=== PATIENT | male | born 1990 | race Caucasian/White ===

== ENCOUNTER 2020-02-29 14:51 | Emergency (ER) | payer SELFPAY ==
[2020-02-29] MEDS ORDERED: DOXYCYCLINE 100 MG CAP PO ONE (15:36)
[2020-02-29] MEDS ORDERED: TETANUS & DIPHTHERIA TOX,ADULT 0.5 ML VIAL ONE (15:36)
--- NOTE | 2020-02-29 15:53 | EDPHYS ---
Physician Documentation [facility] Name: Souleymane Fernandez Age: 29 yrs Sex: Male : 1990 Arrival Date: 02/29/2020 Time: 14:55 Bed 24 Private MD: ED Physician Cruz Smith HPI: 02/28 15:45 This 29 yrs old Male presents to ER via Ambulatory with complaints of kb Laceration To Leg. 15:48 The patient has a laceration related to: fell into oyster bed occurred outdoors, and kb there are no complicating factors. The injury was accidental. The laceration(s) is(are) located on the medial aspect of right calf. Onset: The symptoms/episode began/occurred just prior to arrival. Associated signs and symptoms: The patient has no apparent associated signs or symptoms. The patient has not experienced similar symptoms in the past. The patient has not recently seen a physician. 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 States he was concerned about infection so he came to get it looked at. . Historical: - Allergies: 15:14 No Known Allergies; ca1 - Home Meds: 15:14 None [Active]; ca1 - PMHx: 15:14 None; ca1 - PSHx: 15:14 None; ca1 - Immunization history:: Adult Immunizations up to date, Last tetanus immunization: unknown. - Social history:: Smoking status: Patient reports the use of cigarette tobacco products, denies chronic smoking, but will smoke occasionally. ROS: 15:43 Constitutional: Negative for fever, chills, and weight loss, Cardiovascular: Negative kb for chest pain, palpitations, and edema, Respiratory: Negative for shortness of breath, cough, wheezing, and pleuritic chest pain, Abdomen/GI: Negative for abdominal pain, nausea, vomiting, diarrhea, and constipation, Back: Negative for injury and pain, MS/Extremity: Negative for injury and deformity, Neuro: Negative for headache, weakness, numbness, tingling, and seizure. 15:43 Skin: Positive for laceration(s), of the medial aspect of right calf. Exam: 15:45 Constitutional: This is a well developed, well nourished patient who is awake, alert, kb and in no acute distress. Head/Face: Normocephalic, atraumatic. Chest/axilla: Normal chest wall appearance and motion. Nontender with no deformity. No lesions are appreciated. Cardiovascular: Regular rate and rhythm with a normal S1 and S2. No gallops, murmurs, or rubs. Normal PMI, no JVD. No pulse deficits. Respiratory: Lungs have equal breath sounds bilaterally, clear to auscultation and percussion. No rales, rhonchi or wheezes noted. No increased work of breathing, no retractions or nasal flaring. Abdomen/GI: Soft, non-tender, with normal bowel sounds. No distension or tympany. No guarding or rebound. No evidence of tenderness throughout. Back: No spinal tenderness. No costovertebral tenderness. Full range of motion. MS/ Extremity: Pulses equal, no cyanosis. Neurovascular intact. Full, normal range of motion. Neuro: Awake and alert, GCS 15, oriented to person, place, time, and situation. Cranial nerves II-XII grossly intact. Motor strength 5/5 in all extremities. Sensory grossly intact. Cerebellar exam normal. Normal gait. 15:45 Skin: injury, laceration(s), multiple lacerations/abrasions to medial aspect of right lower leg. , that can be described as linear, without bleeding. Vital Signs: 15:10 BP 118 / 73; Pulse 63; Resp 16 S; Temp 97.4(TE); Pulse Ox 99% on R/A; Weight 99.79 kg ca1 (R); Height 5 ft. 11 in. (180.34 cm) (R); Pain 7/10; 15:10 Body Mass Index 30.68 (99.79 kg, 180.34 cm) ca1 MDM: 15:19 Patient medically screened. kb 15:48 Data reviewed: vital signs, nurses notes. Data interpreted: Pulse oximetry: on room air kb is 99 %. Interpretation: normal. Counseling: I had a detailed discussion with the patient and/or guardian regarding: the historical points, exam findings, and any diagnostic results supporting the discharge/admit diagnosis, the need for outpatient follow up, a family practitioner, to return to the emergency department if symptoms worsen or persist or if there are any questions or concerns that arise at home. 15:49 ED course: One laceration is not well approximated. Discussed risks and benefits of kb suturing the laceration. Pt would rather leave it open to heal so he can clean it.. Administered Medications: 15:33 Drug: Tetanus-Diphtheria Toxoid Adult 0.5 ml {Specialty Manufacturing Supervisor: REPP. Exp: iw 11/29/2021. Lot #: [id number]. } Route: IM; Site: right deltoid; 15:45 Follow up: Response: No adverse reaction iw 15:33 Drug: Doxycycline 100 mg Route: PO; iw 15:45 Follow up: Response: No adverse reaction iw Disposition: 03/01 07:10 Co-signature as Attending Physician, Cruz Smith MD. rn Disposition: 02/29/20 15:52 Discharged to Home. Impression: Laceration without foreign body of lower leg - multiple, right, Abrasion of lower leg. - Condition is Stable. - Discharge Instructions: Nonsutured Laceration Care, Abrasion, [id number]. - Prescriptions for Doxycycline Hyclate 100 mg Oral Tablet - take 1 tablet by ORAL route every 12 hours for 7 days; 14 tablet. - Medication Reconciliation Form, Thank You Letter, Antibiotic Education, Prescription Opioid Use form. - Follow up: Private Physician; When: 2 - 3 days; Reason: Recheck today's complaints, Continuance of care, Re-evaluation by your physician. Follow up: Emergency Department; When: As needed; Reason: Worsening of condition. Signatures: Jennifer Henry, DANNY-C FINANCIAL BUSINESS ANALYST-Jacqui Ahmadi, RN Cruz Pratt MD MD rn Acob, ELIER Juan RN ca1 Corrections: (The following items were deleted from the chart) 02/28 15:47 15:43 Skin: Positive for laceration(s), of the lateral aspect of left calf, kb 15:47 15:45 Skin: injury, laceration(s), multiple lacerations/abrasions to lateral aspect of kb left lower leg. , that can be described as linear, without bleeding, kb 16:08 15:52 02/29/2020 15:52 Discharged to Home. Impression: Laceration without foreign body iw of lower leg - multiple, right; Abrasion of lower leg. Condition is Stable. Forms are Medication Reconciliation Form, Thank You Letter, Antibiotic Education, Prescription Opioid Use. Follow up: Private Physician; When: 2 - 3 days; Reason: Recheck today's complaints, Continuance of care, Re-evaluation by your physician. Follow up: Emergency Department; When: As needed; Reason: Worsening of condition. kb
--- NOTE | 2020-02-29 15:53 | ER ---
Nurse's Notes [facility] Name: Souleymane Fernandez Age: 29 yrs Sex: Male : 1990 Arrival Date: 02/29/2020 Time: 14:55 Bed 24 Private MD: Diagnosis: Laceration without foreign body of lower leg-multiple, right;Abrasion of lower leg Presentation: 02/28 15:10 Chief complaint: Patient states: Abrasions on R inner leg caused by an oyster bed. ca1 Coronavirus screen: Proceed with normal triage. Patient denies a cough. Patient denies shortness of breath or difficulty breathing. Patient denies measured and/or subjective temperature greater than 100.4F prior to today's visit. Patient denies travel on a cruise ship or to a country the [facility] [place] currently [place] as an affected area. Patient denies contact with known and/or suspected case of COVID-19. Ebola Screen: Patient negative for fever greater than or equal to 101.5 degrees Fahrenheit, and additional compatible Ebola Virus Disease symptoms Patient denies exposure to infectious person. Patient denies travel to an Ebola-affected area in the 21 days before illness onset. No symptoms or risks identified at this time. Initial Sepsis Screen: Does the patient meet any 2 criteria? No. Patient's initial sepsis screen is negative. Does the patient have a suspected source of infection? No. Patient's initial sepsis screen is negative. Risk Assessment: Do you want to hurt yourself or someone else? Patient reports no desire to harm self or others. Onset of symptoms was February 29, 2020. 15:10 Method Of Arrival: Ambulatory ca1 15:10 Acuity: ALEJANDRO 4 ca1 15:30 Complicating Factors: There are no complicating factors for this patient. iw Historical: - Allergies: 15:14 No Known Allergies; ca1 - Home Meds: 15:14 None [Active]; ca1 - PMHx: 15:14 None; ca1 - PSHx: 15:14 None; ca1 - Immunization history:: Adult Immunizations up to date, Last tetanus immunization: unknown. - Social history:: Smoking status: Patient reports the use of cigarette tobacco products, denies chronic smoking, but will smoke occasionally. Screenin:56 Abuse screen: Denies threats or abuse. Denies injuries from another. Nutritional iw screening: No deficits noted. Tuberculosis screening: No symptoms or risk factors identified. Fall Risk None identified. Assessment: 15:40 General: Appears in no apparent distress. comfortable, Behavior is calm, cooperative. iw Pain: Complains of pain in medial aspect of right calf. Neuro: Level of Consciousness is awake, alert, obeys commands, Oriented to person, place, time, situation, Moves all extremities. Full function. Cardiovascular: Patient's skin is warm and dry. Respiratory: Respiratory effort is even, unlabored, Respiratory pattern is regular, symmetrical. Derm: Skin is healthy with good turgor. Musculoskeletal: Range of motion: intact in all extremities. Injury Description: Laceration sustained to medial aspect of right calf is 0.5 to 2.5 cm long. Injury Description: Abrasion sustained to right calf and medial aspect of right calf. Vital Signs: 15:10 BP 118 / 73; Pulse 63; Resp 16 S; Temp 97.4(TE); Pulse Ox 99% on R/A; Weight 99.79 kg ca1 (R); Height 5 ft. 11 in. (180.34 cm) (R); Pain 7/10; 15:10 Body Mass Index 30.68 (99.79 kg, 180.34 cm) ca1 ED Course: 14:55 Patient arrived in ED. as 15:13 Triage completed. ca1 15:14 Arm band placed on right wrist. ca1 15:19 Jennifer Henry FNP-C is PHCP. kb 15:19 Cruz Smith MD is Attending Physician. kb 15:21 Jacqui Gracia, RN is Primary Nurse. iw 15:40 Patient has correct armband on for positive identification. iw 15:57 No provider procedures requiring assistance completed. Patient did not have IV access iw during this emergency room visit. Wound care: to abrasion, located on right calf and medial aspect of right calf was cleaned with Hibiclens, Patient tolerated well. Administered Medications: 15:33 Drug: Tetanus-Diphtheria Toxoid Adult 0.5 ml {Health Analyst: [employer]. Exp: iw 11/29/2021. Lot #: [id number]. } Route: IM; Site: right deltoid; 15:45 Follow up: Response: No adverse reaction iw 15:33 Drug: Doxycycline 100 mg Route: PO; iw 15:45 Follow up: Response: No adverse reaction iw Outcome: 15:52 Discharge ordered by MD. branham 16:07 Discharged to home ambulatory. iw 16:07 Condition: good 16:07 Discharge instructions given to 16:08 Patient left the ED. iw Signatures: Jennifer Henry FNP-C FNP-Niharika Richardson Irene RN RN iw Yessica Watkins RN RN ca1
[2020-02-29 16:29] VITALS: BP 118/73; TEMP 97.4; O2SAT 99
== END 2020-02-29 16:08 | disposition home or self-care (01) ==
LOC: ER 14:51
DX: S81.811A Laceration without foreign body, right lower leg, initial encounter (principal); S80.811A Abrasion, right lower leg, initial encounter; W01.198A Fall on same level from slipping, tripping and stumbling with subsequent striking against other object, initial encounter; Y93.89 Activity, other specified; Y92.89 Other specified places as the place of occurrence of the external cause; Z23 Encounter for immunization; Z72.0 Tobacco use
CPT/HCPCS: 90471; 90714; 99283